=== PATIENT | female | born 1960 | race African-American/Black ===

== ENCOUNTER 2017-03-20 21:33 | Emergency (ER) | payer SELFPAY ==
[2017-03-21] MEDS ORDERED: TETRACAINE HCL 0.5% OPH SOLN 2 ML ONE (00:32)
[2017-03-21] MEDS ORDERED: CETIRIZINE 10 MG TABLET PO ONE (00:45)
[2017-03-21] MEDS ORDERED: TETRACAINE HCL 0.5% OPH SOLN 2 ML OS ONE (00:45)
--- NOTE | 2017-03-21 00:51 | ER Document Report ---
ED Eye Complaint - General Chief Complaint: Eye Pain Stated Complaint: LEFT EYE IRRITATION, REDNESS Notes: Patient is a 57-year-old female, contact user, presents with 3 days of left itchy nose and sneezing. She tried Ilene-D with some relief of her symptoms, but her left eye still itches. She recently started a new job and thinks that the dust is causing irritation of her eye. She denies blurry vision, discharge, eye pain or headache. - Related Data Allergies/Adverse Reactions: No Known Allergies Allergy (Unverified 12/14/11 11:03) Past Medical History - General Information source: Patient - Social History Smoking Status: Unknown if Ever Smoked Family History: Reviewed & Not Pertinent - Past Medical History Cardiac Medical History: Reports: Hx Hypertension Renal/ Medical History: Denies: Hx Peritoneal Dialysis Past Surgical History: Reports: Hx Section - x3, Hx Cholecystectomy, Hx Tubal Ligation - Immunizations Hx Diphtheria, Pertussis, Tetanus Vaccination: No Review of Systems - Review of Systems Notes: REVIEW OF SYSTEMS: CONSTITUTIONAL: -fevers, -chills EENT: +left eye redness and pruritis, -eye pain, -difficulty swallowing, -nasal congestion CARDIOVASCULAR:-chest pain, -syncope. RESPIRATORY: -cough, -SOB GASTROINTESTINAL: -abdominal pain, - nausea, -vomiting, -diarrhea GENITOURINARY: -dysuria, -hematuria MUSCULOSKELETAL: -back pain, -neck pain SKIN: -rash or skin lesions. HEMATOLOGIC: -easy bruising or bleeding. LYMPHATIC: -swollen, enlarged glands. NEUROLOGICAL: -altered mental status or loss of consciousness, -headache, - neurologic symptoms PSYCHIATRIC: -anxiety, -depression. ALL OTHER SYSTEMS REVIEWED AND NEGATIVE. Physical Exam - Vital signs Vitals: Temp Pulse Resp BP Pulse Ox 99.1 F 96 17 140/82 H 99 03/20/17 22:49 03/20/17 22:49 03/20/17 22:49 03/20/17 22:49 03/20/17 22:49 - Notes Notes: PHYSICAL EXAMINATION: GENERAL: Well-appearing, well-nourished and in no acute distress. HEAD: Atraumatic, normocephalic. EYES: Blue contact lenses in both eyes, after left contact lens removed no abrasion or ulcer 14 seen exam, EOMI, pupils equal round and reactive to light, sclera anicteric, left conjunctiva injected ENT: nares patent, oropharynx clear without exudates. Moist mucous membranes. NECK: Normal range of motion, supple without lymphadenopathy LUNGS: Breath sounds clear to auscultation bilaterally and equal. No wheezes rales or rhonchi. HEART: Regular rate and rhythm without murmurs ABDOMEN: Soft, nontender, normoactive bowel sounds. No guarding, no rebound. No masses appreciated. EXTREMITIES: Normal range of motion, no pitting or edema. No cyanosis. NEUROLOGICAL: Cranial nerves grossly intact. Normal speech, normal gait. Normal sensory, motor, and reflex exams. PSYCH: Normal mood, normal affect. SKIN: Warm, Dry, normal turgor, no rashes or lesions noted. Course - Vital Signs Vital signs: Temp Pulse Resp BP Pulse Ox 99.1 F 96 17 140/82 H 99 03/20/17 22:49 03/20/17 22:49 03/20/17 22:49 03/20/17 22:49 03/20/17 22:49 Discharge - Discharge Clinical Impression: Allergic conjunctivitis and rhinitis Qualifiers: Laterality: left Qualified Code(s): H10.12 - Acute atopic conjunctivitis, left eye; J30.9 - Allergic rhinitis, unspecified Condition: Good Disposition: HOME, SELF-CARE Additional Instructions: Use the Naphcon drops and take [id number] Zyrtec to help with your eye symptoms. Follow-up with the eye doctor if your symptoms do not improve. Referrals: GAYATHRI RODRIGUES MD [Primary Care Provider] - Follow up as needed DIANE VIEYRA DO [ACTIVE STAFF] - Follow up as needed
[2017-03-21 01:11] VITALS: BP 121/65
== END 2017-03-21 01:11 | disposition home or self-care (01) ==
LOC: ER 21:33
DX: H10.12 Acute atopic conjunctivitis, left eye (principal); J30.9 Allergic rhinitis, unspecified; I10 Essential (primary) hypertension
CPT/HCPCS: 99283

== ENCOUNTER 2018-09-23 18:16 | Emergency (ER) | payer SELFPAY ==
[2018-09-23 18:42] VITALS: BP 162/82
[2018-09-23] MEDS ORDERED: KETOROLAC TROMETHAMINE INJ/PF 30 MG/1 ML SDV IV ONE (19:20)
[2018-09-23] MEDS ORDERED: ONDANSETRON HCL INJ/PF 4 MG/2 ML SDV IV ONE (19:20)
[2018-09-23] MEDS ORDERED: NORMAL SALINE 1000 ML 1,000 ML IV ONE (19:20)
[2018-09-23 19:49] LABS: ABSOLUTE BASOPHILS # (AUTO) 0.1 10^3/uL (0.0-0.2); ABSOLUTE EOSINOPHILS # (AUTO) 0.3 10^3/uL (0.0-0.6); ABSOLUTE LYMPHOCYTES (AUTO) 2.5 10^3/uL (0.5-4.7); ABSOLUTE MONOCYTES (AUTO) 0.4 10^3/uL (0.1-1.4); ABSOLUTE NEUT (AUTO) 3.5 10^3/uL (1.7-8.2); BASOPHILS % (AUTO) 1.1 % (0-2); EOSINOPHILS % (AUTO) 4.5 % (0-6); HEMATOCRIT 43.6 % (36.0-47.0); HEMOGLOBIN 14.5 g/dL (12.0-15.5); LYMPHOCYTES % (AUTO) 36.4 % (13-45); MEAN CORPUSCULAR HEMOGLOBIN 30.4 pg (27.0-33.4); MEAN CORPUSCULAR HGB CONC 33.2 g/dL (32.0-36.0); MEAN CORPUSCULAR VOLUME 92 fl (80-97); MONOCYTES % (AUTO) 6.6 % (3-13); PLATELET COUNT 400 10^3/uL (150-450); RED BLOOD COUNT 4.76 10^6/uL (3.72-5.28); RED CELL DISTRIBUTION WIDTH 14.8 % (11.5-14.0); SEGMENTED NEUTROPHILS % (AUTO) 51.4 % (42-78); TOTAL CELLS COUNTED % (AUTO) 100 %; WHITE BLOOD COUNT 6.8 10^3/uL (4.0-10.5)
[2018-09-23 19:57] LABS: APPEARANCE,URINE SLIGHTLY-CLOUDY; BILIRUBIN,URINE NEGATIVE (NEGATIVE); COLOR,URINE YELLOW; GLUCOSE, URINE NEGATIVE (NEGATIVE); KETONES,URINE NEGATIVE (NEGATIVE); LEUKOCYTE ESTERASE,URINE SMALL (NEGATIVE); NITRITE,URINE NEGATIVE (NEGATIVE); PROTEIN,URINE NEGATIVE (NEGATIVE); URINE SPECIFIC GRAVITY 1.017; UROBILINOGEN,URINE NEGATIVE mg/dL (<2.0)
--- NOTE | 2018-09-23 20:00 | RADIOLOGY REPORT (SQ) ---
EXAM DESCRIPTION: CT LTD RENAL STONE PROTOCOL ON COMPLETED DATE/TIME: 09/23/2018 7:46 pm REASON FOR STUDY: flankpain COMPARISON: 12/14/2011 TECHNIQUE: CT scan of the abdomen and pelvis performed without intravenous or oral contrast. Images reviewed with lung, soft tissue, and bone windows. Reconstructed coronal and sagittal MPR images revi ewed. All images stored on PACS. All CT scanners at this facility use dose modulation, iterative reconstruction, and/or weight based d osing when appropriate to reduce radiation dose to as low as reasonably achievable (ALARA). [facility]: Dose Right [facility]: CareDose [facility]: Dose Right [facility]: Teradose 4D [facility]: IntellinX RADIATION DOSE: mGy. LIMITATIONS: None. FINDINGS: LOWER CHEST: No significant findings. No nodules or infiltrates. NON-CONTRASTED LIVER, SPLEEN, ADRENALS: Evaluation limited by lack of IV contrast. No identified sign ificant masses. PANCREAS: No masses. No peripancreatic inflammatory changes. GALLBLADDER: Surgically absent. RIGHT KIDNEY AND URETER: No suspicious masses. Assessment limited by lack of IV contrast. Small non obstructing intrarenal calculus image 25. No hydronephrosis or hydroureter. LEFT KIDNEY AND URETER: No suspicious masses. Assessment limited by lack of IV contrast. No signifi cant calcifications. No hydronephrosis or hydroureter. AORTA AND RETROPERITONEUM: No aneurysm. No retroperitoneal masses or adenopathy. BOWEL AND PERITONEAL CAVITY: No obvious masses or inflammatory changes. No free fluid. APPENDIX: Not identified. PELVIS, BLADDER, AND ABDOMINAL WALL:No abnormal masses. No free fluid. Bladder normal. BONES: No significant findings. OTHER: There is a 3 mm calcification seen posterior to the bladder on image 70. Is not certain wheth er this represents the same calcification seen on image 69 of the prior study. IMPRESSION: 1. 3 mm calcification posterior to the bladder on the right could conceivably be in the distal ureter. However, there is no hydronephrosis or hydroureter. And there is a similar calcific ation at a similar location on the prior study. 2. Small nonobstructing right intrarenal calculus. COMMENT: Quality ID # [id number]: Final reports with documentation of one or more dose reduction techniques (e.g., Automated exposure control, adjustment of the mA and/or kV according to patient size, use of iterative reconstruction technique) TECHNICAL DOCUMENTATION: JOB ID: [id number] [employer]- All Rights Reserved Reading location - IP/workstation name: [email or web address]
[2018-09-23 20:07] LABS: ALANINE AMINOTRANSFERASE 13 U/L (9-52); ALKALINE PHOSPHATASE 63 U/L (38-126); ANION GAP 5 (5-19); ASPARTATE AMINO TRANSFERASE 28 U/L (14-36); BILIRUBIN,DIRECT 0.3 mg/dL (0.0-0.4); BILIRUBIN,TOTAL 0.6 mg/dL (0.2-1.3); BLOOD UREA NITROGEN 16 mg/dL (7-20); CALCIUM 9.5 mg/dL (8.4-10.2); CARBON DIOXIDE 28 mmol/L (22-30); CHLORIDE 108 mmol/L (98-107); GLUCOSE 90 mg/dL (75-110); POTASSIUM 4.8 mmol/L (3.6-5.0); SODIUM 141.3 mmol/L (137-145); TOTAL PROTEIN 6.8 g/dL (6.3-8.2)
[2018-09-23] MEDS ORDERED: ONDANSETRON 4 MG TAB.RAPDIS PO ONE (20:23)
[2018-09-23] MEDS ORDERED: OXYCODONE-ACETAMINOPHEN 5-325 MG TABLET PO ONE (20:23)
--- NOTE | 2018-09-23 20:29 | ER Document Report ---
ED General - General Chief Complaint: Flank Pain Stated Complaint: SIDE PAIN Time Seen by Provider: 09/23/18 19:14 TRAVEL OUTSIDE OF THE [place] IN LAST 30 DAYS: No - HPI Patient complains to provider of: Right flank pain Notes: Ipatient coming in for evaluation of right flank pain states started all of a sudden earlier today is eased off at this time. Patient denies any hematuria but states that he has a history of kidney stones. Denies any fever chills nausea vomiting diarrhea. Patient resting comfortably upon my evaluation. - Related Data Allergies/Adverse Reactions: No Known Allergies Allergy (Verified 09/23/18 18:35) Past Medical History - Social History Smoking Status: Current Some Day Smoker Chew tobacco use (# tins/day): No Frequency of alcohol use: None Drug Abuse: None Family History: Reviewed & Not Pertinent Patient has suicidal ideation: No Patient has homicidal ideation: No - Past Medical History Cardiac Medical History: Reports: Hx Hypertension Renal/ Medical History: Reports: Hx Kidney Stones. Denies: Hx Peritoneal Dialysis Past Surgical History: Reports: Hx Section - x3, Hx Cholecystectomy, Hx Genitourinary Surgery - cyst removed from bladder, Hx Tubal Ligation - Immunizations Hx Diphtheria, Pertussis, Tetanus Vaccination: No Review of Systems - Review of Systems Constitutional: No symptoms reported EENT: No symptoms reported Cardiovascular: No symptoms reported Respiratory: No symptoms reported Gastrointestinal: No symptoms reported Genitourinary: Flank pain Female Genitourinary: No symptoms reported Musculoskeletal: No symptoms reported Skin: No symptoms reported Hematologic/Lymphatic: No symptoms reported Neurological/Psychological: No symptoms reported -: Yes All other systems reviewed and negative Physical Exam - Vital signs Vitals: Temp Pulse Resp BP Pulse Ox 98.7 F 64 20 162/82 H 100 09/23/18 18:40 09/23/18 18:40 09/23/18 18:40 09/23/18 18:40 09/23/18 18:40 Interpretation: Normal - General General appearance: Appears well, Alert - HEENT Head: Normocephalic, Atraumatic Eyes: Normal Pupils: PERRL - Respiratory Respiratory status: No respiratory distress Chest status: Nontender Breath sounds: Normal Chest palpation: Normal - Cardiovascular Rhythm: Regular Heart sounds: Normal auscultation Murmur: No - Abdominal Inspection: Normal Distension: No distension Bowel sounds: Normal Tenderness: Nontender Organomegaly: No organomegaly - Back Back: Normal, Nontender - Extremities General upper extremity: Normal inspection, Nontender, Normal color, Normal ROM , Normal temperature General lower extremity: Normal inspection, Nontender, Normal color, Normal ROM , Normal temperature, Normal weight bearing. No: Dudley's sign - Neurological Neuro grossly intact: Yes Cognition: Normal Orientation: AAOx4 Bynum Coma Scale Eye Opening: Spontaneous Bynum Coma Scale Verbal: Oriented Bynum Coma Scale Motor: Obeys Commands Bynum Coma Scale Total: 15 Speech: Normal Motor strength normal: LUE, RUE, LLE, RLE Sensory: Normal - Psychological Associated symptoms: Normal affect, Normal mood - Skin Skin Temperature: Warm Skin Moisture: Dry Skin Color: Normal Course - Re-evaluation Re-evalutation: 09/23/18 21:10 CT scan does show signs of a kidney stone which is consistent with the patient' s hematuria. Kidney stone treatment was performed Flomax pain medication Tylenol Motrin oxycodone and Zofran for nausea. Patient was educated about kidney stones no signs of urosepsis infection or renal failure patient discharged home - Vital Signs Vital signs: Temp Pulse Resp BP Pulse Ox 98.7 F 64 20 162/82 H 100 09/23/18 18:40 09/23/18 18:40 09/23/18 18:40 09/23/18 18:40 09/23/18 18:40 - Laboratory Result Diagrams: 09/23/18 19:30 09/23/18 19:30 Laboratory results interpreted by me: 09/23/18 09/23/18 09/23/18 19:30 19:30 19:30 RDW 14.8 H Chloride 108 H Urine Blood LARGE H Ur Leukocyte Esterase SMALL H Discharge - Discharge Clinical Impression: Kidney stone Condition: Good Disposition: HOME, SELF-CARE Instructions: Kidney Stone ([facility]), Oral Narcotic Medication ([facility]) Additional Instructions: Your CT scan today laboratory evaluation shows blood within the urine consistent with a kidney stone that we see on the CAT scan. I will highly recommend she drink plenty of fluids to help passage of the kidney stone. Zofran for nausea Tylenol and Motrin for pain control hydrocodone for severe pain. Return to ER symptoms worsen. Flomax is used to possibly aid in passage of the kidney stone however this is not needed to passed a kidney stone. Prescriptions: Ibuprofen [Motrin 600 mg Tablet] 600 mg PO Q8HP PRN #21 tablet PRN Reason: Ondansetron [Zofran Odt] 4 mg PO Q6 PRN #30 tab.rapdis PRN Reason: For Nausea/Vomiting Oxycodone HCl 5 mg PO Q6 #20 tablet Tamsulosin HCl [Flomax 0.4 mg Cap.sr] 0.4 mg PO DAILY #7 cap.sr.24h Forms: Return to Work Referrals: GAYATHRI RODRIGUES MD [COMMUNITY BASED STAFF] - Follow up as needed
== END 2018-09-23 20:32 | disposition home or self-care (01) ==
LOC: ER 18:16
DX: N20.0 Calculus of kidney (principal); R10.9 Unspecified abdominal pain; F17.200 Nicotine dependence, unspecified, uncomplicated; I10 Essential (primary) hypertension
CPT/HCPCS: 99284; 96361; 96374; 96375; 36415; 85025; 80053; 81001; 76380; S0119; J1885; J2405; J7030

== ENCOUNTER 2018-11-01 11:03 | Emergency (ER) | payer OTHER ==
[2018-11-01] MEDS ORDERED: FLUCONAZOLE 100 MG TABLET PO ONE (11:29)
--- NOTE | 2018-11-01 11:29 | ER Document Report ---
ED General - General Chief Complaint: Rash Stated Complaint: SKIN IRRITATION Time Seen by Provider: 11/01/18 11:21 Notes: Patient is a 58-year-old female that presents to the emergency department for chief complaint of rash. Patient states that she is noticed the rash on her breast, she thinks is a yeast rash, she states she gets this almost every summer , but it seemed to have gotten worse over the last 2 days which she noticed it is more painful, she did try applying a antifungal cream, that was borrowed from a friend, and she thinks it may have made it worse so she wanted to come to the emergency department to have this evaluated. She denies any other rashes , other than underneath her breast, seems to be worse on the right breast, than the left. She has a secondary complaint, she was recently seen about 3 weeks ago, for kidney stone, she states that it was in the lower portion about to go to the bladder, but she still occasionally gets a sharp sensation here and there , is not sure if she passed it. She denies any any blood in the urine or dysuria. She states she has some mild nausea, but no vomiting. Currently rates her pain as a 1 out of 10 describes it as a sharp burning sensation under the breast with a rashes. Past Medical History: Kidney stones, hypertension Past Surgical History: , cholecystectomy, tubal ligation Social History: Admits to rare alcohol use and rare tobacco use, denies illicit drug use. Family History: Reviewed and noncontributory for presenting illness Allergies: Reviewed, see documented allergy list. REVIEW OF SYSTEMS: Other than noted above, the 12 point review of systems was reviewed with the patient and were negative, all pertinent findings are included in the HPI. PHYSICAL EXAMINATION: Vital signs reviewed, nursing noted reviewed. GENERAL: Well-appearing, well-nourished and in no acute distress. HEAD: Atraumatic, normocephalic. EYES: Eyes appear normal, extraocular movements intact, sclera anicteric, conjunctiva are normal. ENT: nares patent, oropharynx clear without exudates. Moist mucous membranes. NECK: Normal range of motion, supple without lymphadenopathy LUNGS: Breath sounds clear to auscultation bilaterally and equal. No wheezes rales or rhonchi. HEART: Regular rate and rhythm without murmurs ABDOMEN: Soft, no CVA tenderness, no anterior abdominal tenderness with palpation, normoactive bowel sounds. No rebound, guarding, or rigidity. No masses appreciated. EXTREMITIES: Nontender, good range of motion, no pitting or edema. NEUROLOGICAL: No focal neurological deficits. Moves all extremities spontaneously Motor and sensory grossly intact on exam. PSYCH: Normal mood, normal affect. SKIN: Warm, Dry, normal turgor, patient noted to have a candidal appearing rash underneath the right and left breast, measuring approximately 6 x 8 cm on the right, and 3 x 5 cm on the left. No active drainage or discharge at this time. TRAVEL OUTSIDE OF THE [place] IN LAST 30 DAYS: No - Related Data Allergies/Adverse Reactions: No Known Allergies Allergy (Verified 09/23/18 18:35) Past Medical History - Social History Smoking Status: Current Some Day Smoker Chew tobacco use (# tins/day): No Frequency of alcohol use: Occasional Drug Abuse: None Family History: Reviewed & Not Pertinent Patient has suicidal ideation: No Patient has homicidal ideation: No - Past Medical History Cardiac Medical History: Reports: Hx Hypertension Renal/ Medical History: Reports: Hx Kidney Stones. Denies: Hx Peritoneal Dialysis Past Surgical History: Reports: Hx Section - x3, Hx Cholecystectomy, Hx Genitourinary Surgery - cyst removed from bladder, Hx Tubal Ligation - Immunizations Hx Diphtheria, Pertussis, Tetanus Vaccination: No Physical Exam - Vital signs Vitals: Temp Pulse Resp BP Pulse Ox 98.9 F 93 16 135/81 H 99 11/01/18 11:16 11/01/18 11:16 11/01/18 11:16 11/01/18 11:16 11/01/18 11:16 Course - Re-evaluation Re-evalutation: Patient seen and examined vital signs reviewed. Laboratory data and imaging were ordered as appropriate for the patient's presenting symptoms and complaint, with consideration of any critical or life threatening conditions that may be associated with their obtained history and exam as noted above. Patient was treated with oral Diflucan 200 mg, she was offered medication for pain/discomfort, but declined at this time. Results were reviewed when available and demonstrated KUB negative for identified calcifications, the UA was positive for signs of urinary tract infection, will treat the patient with Keflex 500 mg 3 times daily for 7 days, and prescribe Diflucan for an additional 2 days 200 mg daily, as well as miconazole powder to help with the patient's candidal skin infection. The patient was re-evaluated and was stable, appeared well Evaluation was most consistent with UTI, as well as candidal skin infection. Results were discussed with the patient at this point, after careful consideration I feel that that patient can be discharged from the emergency department, the patient was educated treatments and reasons to return to the emergency department based on their presumed diagnosis as noted above, they were advised to followup with a primary care physician in 2-3 days. Patient was agreeable to plan of care. *Note is created using voice recognition software and may contain spelling, syntax or grammatical errors. Laboratory 11/01/18 11:33 Urine Color YELLOW Urine Appearance CLOUDY Urine pH 5.0 Ur Specific [place] 1.027 Urine Protein 30 H Urine Glucose (UA) NEGATIVE Urine Ketones NEGATIVE Urine Blood SMALL H Urine Nitrite NEGATIVE Urine Bilirubin NEGATIVE Urine Urobilinogen 2.0 H Ur Leukocyte Esterase LARGE H Urine WBC (Auto) >182 Urine RBC (Auto) 26 Squamous Epi Cells Auto 2 U Non-Squamous Epis Auto 5 Urine Mucus (Auto) MOD Urine Ascorbic Acid NEGATIVE KUB X-Ray 11/01/18 11:29 IMPRESSION: NO RADIOGRAPHIC EVIDENCE FOR ACUTE ABDOMINAL DISEASE. No calcifications. - Vital Signs Vital signs: Temp Pulse Resp BP Pulse Ox 98.9 F 78 18 132/88 H 100 11/01/18 12:58 11/01/18 12:58 11/01/18 12:58 11/01/18 12:58 11/01/18 12:58 - Laboratory Laboratory results interpreted by me: 11/01/18 11:33 Urine Protein 30 H Urine Blood SMALL H Urine Urobilinogen 2.0 H Ur Leukocyte Esterase LARGE H Discharge - Discharge Clinical Impression: Candidal skin infection UTI (urinary tract infection) Qualifiers: Urinary tract infection type: site unspecified Hematuria presence: with hematuria Qualified Code(s): N39.0 - Urinary tract infection, site not specified ; R31.9 - Hematuria, unspecified; R31.9 - Hematuria, unspecified Condition: Stable Disposition: HOME, SELF-CARE Instructions: Cephalexin ([facility]), Skin Fungus ([facility]), Urinary Tract Infection ([facility] ) Additional Instructions: Please take the antifungal medication as prescribed, for 2 more days, start taking it tomorrow, and apply the antifungal powder, as directed, please follow- up with your primary care physician, in the next 2-3 days. Please also take the complete course of antibiotics for your urinary tract infection Prescriptions: Cephalexin Monohydrate [Keflex 500 mg Capsule] 500 mg PO Q8H 7 Days #21 capsule Fluconazole [Diflucan] 200 mg PO DAILY #4 tablet Miconazole Nitrate [Micro-Guard] 1 applic TP BID #85 gm Referrals: MANUELA CARRENO MD [Primary Care Provider] - Follow up in 3-5 days
--- NOTE | 2018-11-01 12:00 | RADIOLOGY REPORT (SQ) ---
EXAM DESCRIPTION: KUB/ABDOMEN (SINGLE VIEW) COMPLETED DATE/TIME: 11/01/2018 11:49 am REASON FOR STUDY: right flank pain, recent stone COMPARISON: None. NUMBER OF VIEWS: One view. TECHNIQUE: Supine radiographic image of the abdomen acquired. LIMITATIONS: None. FINDINGS: BOWEL GAS PATTERN: Normal bowel gas pattern. No dilated loops. CALCIFICATIONS: No suspicious calcifications. SOFT TISSUES: No gross mass or suggestion of organomegaly. HARDWARE: Right upper quadrant clips. Pelvic clip. BONES: No acute fracture. No worrisome bone lesions. OTHER: No other significant finding. IMPRESSION: NO RADIOGRAPHIC EVIDENCE FOR ACUTE ABDOMINAL DISEASE. No calcifications. TECHNICAL DOCUMENTATION: JOB ID: [id number] [employer]- All Rights Reserved Reading location - IP/workstation name: [email or web address]
[2018-11-01 12:29] LABS: APPEARANCE,URINE CLOUDY; BILIRUBIN,URINE NEGATIVE (NEGATIVE); COLOR,URINE YELLOW; GLUCOSE, URINE NEGATIVE (NEGATIVE); KETONES,URINE NEGATIVE (NEGATIVE); LEUKOCYTE ESTERASE,URINE LARGE (NEGATIVE); NITRITE,URINE NEGATIVE (NEGATIVE); PROTEIN,URINE 30 mg/dL (NEGATIVE); URINE SPECIFIC GRAVITY 1.027
[2018-11-01 12:59] VITALS: BP 132/88
== END 2018-11-01 12:59 | disposition home or self-care (01) ==
LOC: ER 11:03
DX: B37.2 Candidiasis of skin and nail (principal); N39.0 Urinary tract infection, site not specified; I10 Essential (primary) hypertension; F17.200 Nicotine dependence, unspecified, uncomplicated; Z87.442 Personal history of urinary calculi; Z90.49 Acquired absence of other specified parts of digestive tract; Z98.51 Tubal ligation status
CPT/HCPCS: 74018; 81001; 87086; 87088; 87186; 99283

== ENCOUNTER 2018-12-03 18:57 | Emergency (ER) | payer OTHER ==
[2018-12-03] MEDS ORDERED: LIDOCAINE 5% (700 MG) TRANSDERMAL ADH..PATCH TP ONE (20:29)
[2018-12-03] MEDS ORDERED: NYSTATIN/TRIAMCIN OINTMENT 15 GM TP ONE (20:29)
[2018-12-03] MEDS ORDERED: ACETAMINOPHEN 325 MG TABLET PO ONE (20:29)
--- NOTE | 2018-12-03 20:34 | ER Document Report ---
ED General - General Chief Complaint: Back Pain Stated Complaint: BACK PAIN Time Seen by Provider: 12/03/18 20:08 Mode of Arrival: Ambulatory Information source: Patient Notes: 58-year-old female presents to ED for complaint of low back pain and yeast under both breasts. She states yeast is been there off and on since last time she came. She states she has this frequently in the summer but not really in the winter. She states she has had this low back pain a couple times before but this pain started yesterday while she was just laying on her couch. She does have a bruise to the area that she is complaining of but she states she did not fall or injure herself. Patient is alert oriented respirations regular and unlabored speaking in full sentences. TRAVEL OUTSIDE OF THE [place] IN LAST 30 DAYS: No - HPI Onset: Yesterday Onset/Duration: Persistent Quality of pain: Sharp Severity: Severe Pain Level: 5 Associated symptoms: Other - Low back pain and pain to the rash under both breasts Exacerbated by: Movement Relieved by: Denies Similar symptoms previously: Yes Recently seen / treated by doctor: No - Related Data Allergies/Adverse Reactions: No Known Allergies Allergy (Verified 12/03/18 18:58) Past Medical History - General Information source: Patient - Social History Smoking Status: Former Smoker Cigarette use (# per day): No Chew tobacco use (# tins/day): No Smoking Education Provided: No Frequency of alcohol use: Rare Drug Abuse: None Occupation: None Lives with: Alone Family History: Reviewed & Not Pertinent Patient has suicidal ideation: No Patient has homicidal ideation: No - Past Medical History Cardiac Medical History: Reports: Hx Hypertension Pulmonary Medical History: Reports: None EENT Medical History: Reports: None Neurological Medical History: Reports: None Endocrine Medical History: Reports: None Renal/ Medical History: Reports: Hx Kidney Stones Malignancy Medical History: Reports: None GI Medical History: Reports: None Musculoskeletal Medical History: Reports Hx Musculoskeletal Deformity - Back pain Skin Medical History: Reports Hx Cellulitis - And yeast rash Psychiatric Medical History: Reports: None Traumatic Medical History: Reports: None Infectious Medical History: Reports: None Past Surgical History: Reports: Hx Section - x3, Hx Cholecystectomy, Hx Genitourinary Surgery - cyst removed from bladder, Hx Gynecologic Surgery - Surgery to open her tubes before childbirth in 1984, Hx Tubal Ligation - Immunizations Hx Diphtheria, Pertussis, Tetanus Vaccination: No Review of Systems - Review of Systems Constitutional: No symptoms reported EENT: No symptoms reported Cardiovascular: No symptoms reported Respiratory: No symptoms reported Gastrointestinal: No symptoms reported Genitourinary: No symptoms reported Female Genitourinary: No symptoms reported Musculoskeletal: Back pain, Muscle pain Skin: No symptoms reported, Rash - Red excoriated rash under both breast Hematologic/Lymphatic: No symptoms reported Neurological/Psychological: No symptoms reported -: Yes All other systems reviewed and negative Physical Exam - Vital signs Vitals: Temp Pulse Resp BP Pulse Ox 99.1 F 103 H 16 153/102 H 98 12/03/18 19:12 12/03/18 19:12 12/03/18 19:12 12/03/18 19:12 12/03/18 19:12 Interpretation: Hypertensive - She has not had a blood pressure medicine yet today - General General appearance: Appears well, Alert - HEENT Head: Normocephalic, Atraumatic Eyes: Normal Pupils: PERRL - Respiratory Respiratory status: No respiratory distress Chest status: Nontender Breath sounds: Normal Chest palpation: Normal - Cardiovascular Rhythm: Regular Heart sounds: Normal auscultation Murmur: No - Abdominal Inspection: Normal Distension: No distension Bowel sounds: Normal Tenderness: Nontender Organomegaly: No organomegaly - Back Back: Tender, Vertebra tenderness, Other - Ecchymosis to the left lower back patient insists she did not have a fall or injury. No: Deformity/step-off, CVA tenderness, Scars, Scoliosis, Wounds - Extremities General upper extremity: Normal inspection, Nontender, Normal color, Normal ROM, Normal temperature General lower extremity: Normal inspection, Nontender, Normal color, Normal ROM, Normal temperature, Normal weight bearing. No: Dudley's sign - Neurological Neuro grossly intact: Yes Cognition: Normal Orientation: AAOx4 Keily Coma Scale Eye Opening: Spontaneous Keily Coma Scale Verbal: Oriented Keily Coma Scale Motor: Obeys Commands Keily Coma Scale Total: 15 Speech: Normal Motor strength normal: LUE, RUE, LLE, RLE Sensory: Normal - Psychological Associated symptoms: Normal affect, Normal mood - Skin Skin Temperature: Warm Skin Moisture: Dry Skin Color: Normal Skin irregularity: Rash - Yeast rash under both breast Character of irregularity: Erythematous Irregularity with: Inflammation Course - Re-evaluation Re-evalutation: 12/03/18 21:23 X-ray was negative for the low back. Patient was given instructions on Tylenol muscle relaxer ice packs cold packs exercise and Lidoderm patches. Patient was given a prescription for Mycolog for her yeast infection under her breast and for Flexeril for her back pain. Patient was given instructions to clean and dry the skin under her breast twice a day and apply the Mycolog cream. Patient was able to verbalize understanding and agreement with treatment plan. Patient instructed to follow-up with her primary doctor or a mail order clerk for her yeast infection. After performing a Medical Screening Examination, I estimate there is LOW risk for EXPANDING OR RUPTURED ABDOMINAL AORTIC ANEURYSM, CAUDA EQUINA SYNDROME, EPIDURAL MASS LESION, or HERNIATED DISK CAUSING SEVERE SPINAL STENOSIS, thus I consider the discharge disposition reasonable. I have reevaluated this patient multiple times and no significant life threatening changes are noted. The patient and I have discussed the diagnosis and risks, and we agree with discharging home and close follow-up. We also discussed returning to the Emergency Department immediately if new or worsening symptoms occur with the understanding that symptoms and presentations can change. We have discussed the symptoms which are most concerning (e.g., saddle anesthesia, urinary or bowel incontinence or retention, changing or worsening pain) that necessitate immediate return. - Vital Signs Vital signs: Temp Pulse Resp BP Pulse Ox 99.1 F 103 H 16 153/102 H 98 12/03/18 19:12 12/03/18 19:12 12/03/18 19:12 12/03/18 19:12 12/03/18 19:12 - Diagnostic Test Radiology reviewed: Image reviewed, Reports reviewed Discharge - Discharge Clinical Impression: Yeast dermatitis Low back pain Qualifiers: Chronicity: acute Back pain laterality: right Sciatica presence: with sciatica Sciatica laterality: sciatica of right side Qualified Code(s): M54.41 - Lumbago with sciatica, right side Condition: Stable Disposition: HOME, SELF-CARE Additional Instructions: You have a yeast infection on the both breast. Please clean the area 2 times a day, dry well, be sure that the area is completely dry and then apply your Mycolog cream. I have given you a tube of the Mycolog as well as a prescription so that you can apply it for 7 days. Follow-up with your primary doctor in the next week if this does not clear up your yeast infection or follow-up with a mail order clerk. Please take your blood pressure medicine is soon as you go home as your blood pressure has been elevated in the emergency room. LOW BACK PAIN: Three out of every four people will have an episode of disabling back pain during their lifetime. Most commonly the pain is due to straining of the muscles and ligaments in the low back. Usual treatment includes: (1) Rest on a firm surface. Avoid lying on your stomach. (2) Ice pack the painful area. After a few days, gentle heat may be used intermittently to relax the area, or ice packs can be continued. (3) Medication may be needed -- muscle relaxers and antiinflammatory medicines are commonly used. (4) As the back improves, exercises are prescribed to strengthen the back and abdominal muscles. Your doctor will advise you on the proper care for your back at each stage in your recovery. You may be better in a few days -- or healing may take several weeks. If new symptoms of a "herniated disc" (radiation of pain, numbness, or tingling down the back of the leg or weakness in the leg) occur, you should be re-examined. Further testing may be necessary. MUSCLE RELAXERS: Muscle relaxing medications are usually prescribed for acute muscle spasm or injury to the neck and back. They are often combined with antiinflammatory pain medication for increased relief. You may stop the muscle relaxer when the pain and stiffness have improved. Start the medication again if spasms recur. Muscle relaxers may cause drowsiness, especially with the first dose. Do not operate machinery or drive while under the effects of the medication. Most muscle relaxers last up to 24 hours. Do not combine the medication with alcohol. ICE PACKS: Apply ice packs frequently against the painful area. Many different schedules are recommended, such as "20 minutes on, 20 minutes off" or "one hour ice, two hours rest." If you need to work, you may need to go longer between ice treatments. You should plan to have the area ice packed AT LEAST one fourth of the time. The ice should be applied over the wrap, tape, or splint, or over a layer of cloth -- not directly against the skin. Some ice bags have a built-in cloth and can be put directly on the skin. WARM PACKS: After approximately two days, apply gentle heat (such as a heating pad or hot water bottle) for about 20 to 30 minutes about every two hours -- at least four times daily. Warmth and elevation will help you make a more rapid recovery, and will ease the pain considerably. Do not use HOT heat, and never apply heat for longer than 30 minutes. The continuous heat can invisibly damage skin and muscles -- even when no burn is seen on the surface. Damaged muscles can make you MORE sore. Acetaminophen Acetaminophen may be taken for pain relief or fever control. It's much safer than aspirin, offering a wider range of "safe" dosages. It is safe during . Some brand names are Tylenol, Panadol, Datril, Anacin 3, Tempra, and Liquiprin. Acetaminophen can be repeated every four hours. The following are maximum recommended dosages: WEIGHT Dose Drops Elixir Chewable(80mg) (LBS.) drprs=droppers tsp=teaspoon 6 40 mg .4 ml (1/2) 6-11 80 mg .8 ml (full) 1/2 tsp 1 tab 12-16 120 mg 1 1/2 drprs 3/4 tsp 1 1/2 tabs 17-23 160 mg 2 drprs 1 tsp 2 tabs 24-30 240 mg 3 drprs 1 1/2 tsp 3 tabs 30-35 320 mg 2 tsp 4 tabs 36-41 360 mg 2 1/4 tsp 4 1/2 tabs 42-47 400 mg 2 1/2 tsp 5 tabs 48-53 480 mg 3 tsp 6 tabs 54-59 520 mg 3 1/4 tsp 6 1/2 tabs 60-64 560 mg 3 1/2 tsp 7 tabs 65-70 600 mg 3 3/4 tsp 7 1/2 tabs 71-76 640 mg 4 tsp 8 tabs 77-82 720 mg 4 1/2 tsp 9 tabs 83-88 800 mg 5 tsp 10 tabs >89 pounds or adults 650 mg to 900 mg Acetaminophen can be repeated every four hours. Maximum daily dose not to exceed 4000 mg. These maximum recommended dosages are slightly higher than the dosages written on the product container, but these dosages are very safe and well below the toxic dosage for acetaminophen. Stretching Exercises for the Back The physician has recommended that you begin stretching exercises for your back. These are often used even while the back is painful. However, you should notify the physician if the activities seem to increase your pain. PELVIC TILT: Lie flat on your back with knees bent. Tighten your stomach and buttock muscles so it flattens your lower back against the floor. Hold 10 seconds. Repeat 10 times, twice daily. KNEE RAISE: Lying on the back with knees bent, raise one knee to your chest, then the other. Hold both knees against the chest 10 seconds, then lower one knee at a time. Repeat 10 times, twice daily. PARTIAL TRUNK RAISE: Lie face down, arms at your sides. Keeping your waist on the floor, use your arms raise your chest up. Support yourself on your elbows for 30 seconds. Repeat twice daily, increasing the time to two minutes as you recover. A Lidoderm patch has been applied to your back. This can stay on for 12 hours then needs to be removed and left off for 12 hours before applying a second patch. I have written you a prescription for these Lidoderm patches if you cannot afford the patches and you can buy them [id number] or you can buy Aspercreme lidocaine cream and apply it to the area. FOLLOW-UP CARE: If you have been referred to a physician for follow-up care, call the physicians office for an appointment as you were instructed or within the next two days. If you experience worsening or a significant change in your symptoms, notify the physician immediately or return to the Emergency Department at any time for re-evaluation. Prescriptions: Cyclobenzaprine HCl [Flexeril 10 mg Tablet] 10 mg PO TIDP PRN #15 tab PRN Reason: Nystatin/Triamcin [Mycolog-II Ointment] 1 applic TP BID #1 tube Forms: Elevated Blood Pressure
--- NOTE | 2018-12-03 21:06 | RADIOLOGY REPORT (SQ) ---
5 VIEWS OF THE LUMBAR SPINE HISTORY: Lower back pain. COMPARISON: None. FINDINGS: 5 non-rib bearing lumbar-type vertebra are present. There is normal alignment without static listhesis. The vertebral body heights and disc spaces are preserved. No evidence of spondylolysis on the oblique views. The SI joints are intact. IMPRESSION: No acute fracture or listhesis.
[2018-12-03 21:16] VITALS: BP 153/77
== END 2018-12-03 21:31 | disposition home or self-care (01) ==
LOC: ER 18:57
DX: B37.2 Candidiasis of skin and nail (principal); M54.41 Lumbago with sciatica, right side; I10 Essential (primary) hypertension; Z90.49 Acquired absence of other specified parts of digestive tract; Z98.51 Tubal ligation status
CPT/HCPCS: 99284; 72110; J3490

== ENCOUNTER 2019-03-20 17:19 | Emergency (ER) | payer OTHER ==
--- NOTE | 2019-03-20 17:43 | ER Document Report ---
ED Medical Screen (RME) - General Chief Complaint: Flank Pain Stated Complaint: RIGHT FLANK PAIN Time Seen by Provider: 03/20/19 17:41 Mode of Arrival: Ambulatory Information source: Patient Notes: 59-year-old female presented to ED for complaint of possible kidney stone with right flank pain. States a history of a kidney stone. States she came in here before got real bad and started having nausea and vomiting patient is alert oriented respirations regular and unlabored speaking in full sentences. She also has a history of high blood pressure and cholesterol. She is not having nausea or vomiting at this time. I have greeted and performed a rapid initial assessment of this patient. A comprehensive ED assessment and evaluation of the patient, analysis of test results and completion of medical decision making process will be conducted by an additional ED providers. TRAVEL OUTSIDE OF THE [place] IN LAST 30 DAYS: No - Related Data Allergies/Adverse Reactions: No Known Allergies Allergy (Verified 03/20/19 17:21) Past Medical History - Social History Frequency of alcohol use: Rare - Past Medical History Cardiac Medical History: Reports: Hx Hypertension Renal/ Medical History: Reports: Hx Kidney Stones. Denies: Hx Peritoneal Dialysis Musculoskeltal Medical History: Reports Hx Musculoskeletal Deformity - Back pain Skin Medical History: Reports Hx Cellulitis - And yeast rash Past Surgical History: Reports: Hx Section - x3, Hx Cholecystectomy, Hx Genitourinary Surgery - cyst removed from bladder, Hx Gynecologic Surgery - Surgery to open her tubes before childbirth in 1984, Hx Tubal Ligation - Immunizations Hx Diphtheria, Pertussis, Tetanus Vaccination: No Physical Exam - Vital signs Vitals: Temp Pulse Resp BP Pulse Ox 97.9 F 63 16 151/76 H 100 03/20/19 17:24 03/20/19 17:24 03/20/19 17:24 03/20/19 17:24 03/20/19 17:24 Course - Vital Signs Vital signs: Temp Pulse Resp BP Pulse Ox 97.9 F 63 16 151/76 H 100 03/20/19 17:24 03/20/19 17:24 03/20/19 17:24 03/20/19 17:24 03/20/19 17:24
[2019-03-20 18:04] LABS: APPEARANCE,URINE SLIGHTLY-CLOUDY; BILIRUBIN,URINE NEGATIVE (NEGATIVE); COLOR,URINE YELLOW; GLUCOSE, URINE NEGATIVE (NEGATIVE); KETONES,URINE NEGATIVE (NEGATIVE); LEUKOCYTE ESTERASE,URINE TRACE (NEGATIVE); NITRITE,URINE NEGATIVE (NEGATIVE); PROTEIN,URINE NEGATIVE (NEGATIVE); URINE SPECIFIC GRAVITY 1.025; UROBILINOGEN,URINE NEGATIVE mg/dL (<2.0)
[2019-03-20] MEDS ORDERED: KETOROLAC TROMETHAMINE 60 MG/2 ML SDV IM ONE (18:28)
--- NOTE | 2019-03-20 18:28 | RADIOLOGY REPORT (SQ) ---
EXAM DESCRIPTION: CT ABD/PELVIS NO ORAL OR IV COMPLETED DATE/TIME: 03/20/2019 6:09 pm REASON FOR STUDY: right flank pain hx stone COMPARISON: None. TECHNIQUE: CT scan of the abdomen and pelvis performed without intravenous or oral contrast. Images reviewed with lung, soft tissue, and bone windows. Reconstructed coronal and sagittal MPR images revi ewed. All images stored on PACS. All CT scanners at this facility use dose modulation, iterative reconstruction, and/or weight based d osing when appropriate to reduce radiation dose to as low as reasonably achievable (ALARA). [facility]: Dose Right [facility]: CareDose [facility]: Dose Right [facility]: Teradose 4D [facility]: Smart [employer] RADIATION DOSE: CT Rad equipment meets quality standard of care and radiation dose reduction techniq ues were employed. CTDIvol: 4.8 mGy. DLP: 237 mGy-cm.mGy. LIMITATIONS: None. FINDINGS: LOWER CHEST: No significant findings. No nodules or infiltrates. NON-CONTRASTED LIVER, SPLEEN, ADRENALS: Evaluation limited by lack of IV contrast. No identified sign ificant masses. PANCREAS: No masses. No peripancreatic inflammatory changes. GALLBLADDER: Surgically absent. RIGHT KIDNEY AND URETER: No suspicious masses. Assessment limited by lack of IV contrast. 5 mm calc ulus nonobstructive. No hydronephrosis or hydroureter. LEFT KIDNEY AND URETER: No suspicious masses. Assessment limited by lack of IV contrast. No signifi cant calcifications. No hydronephrosis or hydroureter. AORTA AND RETROPERITONEUM: No aneurysm. No retroperitoneal masses or adenopathy. BOWEL AND PERITONEAL CAVITY: No obvious masses or inflammatory changes. No free fluid. APPENDIX: Not visualized. PELVIS, BLADDER, AND ABDOMINAL WALL:No abnormal masses. No free fluid. Bladder normal. Surgical clip s anterior to the uterus. BONES: No significant findings. OTHER: No other significant finding. IMPRESSION: Right peripheral nephrolithiasis. No ureteral calculi. COMMENT: Quality ID # [id number]: Final reports with documentation of one or more dose reduction techniques (e.g., Automated exposure control, adjustment of the mA and/or kV according to patient size, use of iterative reconstruction technique) TECHNICAL DOCUMENTATION: JOB ID: [id number] [employer]- All Rights Reserved Reading location - IP/workstation name: [email or web address]
--- NOTE | 2019-03-20 19:15 | ER Document Report ---
ED General - General Chief Complaint: Flank Pain Stated Complaint: RIGHT FLANK PAIN Time Seen by Provider: 03/20/19 17:41 Mode of Arrival: Ambulatory TRAVEL OUTSIDE OF THE [place] IN LAST 30 DAYS: No - HPI Notes: Patient is a 59-year-old female presents to the emergency department for evaluation of right flank pain. She states this feels exactly like her kidney stone in the past. It started about 2:00 this afternoon. She states the pain is constant, sharp. She has had some nausea but no vomiting. No known fevers or chills. She states she may be urinating more frequently, but she is unsure. No zane hematuria, no dysuria. Otherwise no acute complaints. - Related Data Allergies/Adverse Reactions: No Known Allergies Allergy (Verified 03/20/19 17:21) Past Medical History - General Information source: Patient - Social History Smoking Status: Current Some Day Smoker Frequency of alcohol use: Rare Family History: Reviewed & Not Pertinent Patient has suicidal ideation: No Patient has homicidal ideation: No - Past Medical History Cardiac Medical History: Reports: Hx Hypertension Renal/ Medical History: Reports: Hx Kidney Stones. Denies: Hx Peritoneal Dialysis Musculoskeletal Medical History: Reports Hx Musculoskeletal Deformity - Back pain Skin Medical History: Reports Hx Cellulitis - And yeast rash Past Surgical History: Reports: Hx Section - x3, Hx Cholecystectomy, Hx Genitourinary Surgery - cyst removed from bladder, Hx Gynecologic Surgery - Surgery to open her tubes before childbirth in 1984, Hx Tubal Ligation - Immunizations Hx Diphtheria, Pertussis, Tetanus Vaccination: No Review of Systems - Review of Systems Constitutional: No symptoms reported EENT: No symptoms reported Cardiovascular: No symptoms reported Respiratory: No symptoms reported Gastrointestinal: No symptoms reported Genitourinary: See HPI Musculoskeletal: No symptoms reported Skin: No symptoms reported Neurological/Psychological: No symptoms reported Physical Exam - Vital signs Vitals: Temp Pulse Resp BP Pulse Ox 97.9 F 63 16 151/76 H 100 03/20/19 17:24 03/20/19 17:24 03/20/19 17:24 03/20/19 17:24 03/20/19 17:24 - Notes Notes: Vital signs reviewed, please refer to chart. Patient is normocephalic, atraumatic. Pupils equal round, reactive to light. Neck is supple without meningismus. Heart is regular rate and rhythm. Lungs are clear to auscultation bilaterally. Abdomen is soft, nontender, normoactive bowel sounds throughout. No CVA tenderness. Extremities without cyanosis, clubbing, edema. Peripheral pulses are equal. Skin is warm and dry. Patient is awake, alert, neurological exam is nonfocal. Course - Re-evaluation Re-evalutation: 03/20/19 19:12 Patient presents emergency department for evaluation. She had a urinalysis and CT scan ordered through triage. I did give a verbal order for the patient received Toradol IM here. This is actually before the completion of my exam. The patient said her pain was entirely resolved. CT scan failed to reveal any ureteral stones. At this point, certainly she could have had a sub-millimeter stone that caused her similar symptoms. I will send her home with anti- inflammatories and nausea medication. She is to follow-up with primary care, return to the emergency department for worsening or new concerning symptoms. - Vital Signs Vital signs: Temp Pulse Resp BP Pulse Ox 97.9 F 63 16 151/76 H 100 03/20/19 17:24 03/20/19 17:24 03/20/19 17:24 03/20/19 17:24 03/20/19 17:24 - Laboratory Laboratory results interpreted by me: 03/20/19 17:43 Ur Leukocyte Esterase TRACE H Discharge - Discharge Clinical Impression: Acute right flank pain Condition: Stable Disposition: HOME, SELF-CARE Instructions: Toradol Injection ([facility]), Antinausea Medication ([facility]), Abdominal Pain ([facility]) Additional Instructions: Rest, stay well-hydrated. Take medications as needed. Follow-up with your primary care physician next week. Return to the emergency department with worsening or new concerning symptoms.
[2019-03-20 19:43] VITALS: BP 150/75
== END 2019-03-20 19:42 | disposition home or self-care (01) ==
LOC: ER 17:19
DX: R10.9 Unspecified abdominal pain (principal); R11.0 Nausea; F17.200 Nicotine dependence, unspecified, uncomplicated; I10 Essential (primary) hypertension; Z87.442 Personal history of urinary calculi
CPT/HCPCS: 99284; 81001; 74176; J1885

== ENCOUNTER 2019-04-08 03:23 | Emergency (ER) | payer OTHER ==
[2019-04-08] MEDS ORDERED: BENZONATATE 100 MG CAPSULE PO ONE (04:31)
--- NOTE | 2019-04-08 04:33 | ER Document Report ---
ED General - General Chief Complaint: Chest Congestion Stated Complaint: COLD SYMPTOMS Time Seen by Provider: 04/08/19 04:04 Notes: Patient is a 59-year-old female that comes to the emergency department with 2 complaints. First complaint is a productive cough for the past 3 days, there is a small amount of white sputum production, patient states it started out with some irritation of the back of her throat and then developed into a cough. She reports some chills/sweats occasionally, denies fevers. Denies difficulty breathing, sinus tenderness, congestion. Second complaint is she stepped on a nail approximately 2 days ago, this was in the mid bottom of her left foot, she states this started to become a little bit red and is starting to become painful. She denies swelling. She is up-to-date on her tetanus within 5 years. She is not a diabetic, she denies blood thinner. Only past medical history of hypertension, on atenolol. TRAVEL OUTSIDE OF THE [place] IN LAST 30 DAYS: No - Related Data Allergies/Adverse Reactions: No Known Allergies Allergy (Verified 03/20/19 17:21) Past Medical History - General Information source: Patient - Social History Smoking Status: Never Smoker Chew tobacco use (# tins/day): No Frequency of alcohol use: Occasional Drug Abuse: None Lives with: Family Family History: Reviewed & Not Pertinent Patient has suicidal ideation: No Patient has homicidal ideation: No - Past Medical History Cardiac Medical History: Reports: Hx Hypertension Renal/ Medical History: Reports: Hx Kidney Stones. Denies: Hx Peritoneal Dialysis Musculoskeletal Medical History: Reports Hx Musculoskeletal Deformity - Back pain Skin Medical History: Reports Hx Cellulitis - And yeast rash Past Surgical History: Reports: Hx Section - x3, Hx Cholecystectomy, Hx Genitourinary Surgery - cyst removed from bladder, Hx Gynecologic Surgery - Surgery to open her tubes before childbirth in 1984, Hx Tubal Ligation - Immunizations Hx Diphtheria, Pertussis, Tetanus Vaccination: No Review of Systems - Review of Systems Constitutional: No symptoms reported EENT: No symptoms reported Cardiovascular: No symptoms reported Respiratory: See HPI Gastrointestinal: No symptoms reported Genitourinary: No symptoms reported Female Genitourinary: No symptoms reported Musculoskeletal: See HPI Skin: No symptoms reported Hematologic/Lymphatic: No symptoms reported Neurological/Psychological: No symptoms reported Physical Exam - Vital signs Vitals: Temp Pulse Resp BP Pulse Ox 98.1 F 61 17 174/97 H 99 04/08/19 03:30 04/08/19 03:30 04/08/19 03:30 04/08/19 03:30 04/08/19 03:30 - Notes Notes: GENERAL: Alert, interacts well. No acute distress. HEAD: Normocephalic, atraumatic. EYES: Pupils equal, round, and reactive to light. Extraocular movements intact. ENT: Oral mucosa moist, tongue midline. Oropharynx unremarkable. Airway patent. Nares patent, no nasal septal hematoma, TM's intact. NECK: Full range of motion. Supple. Trachea midline. LUNGS: Frequent tight cough, however lungs are clear, no tachypnea, no rales, no rhonchi, no wheezing HEART: Regular rate and rhythm. No murmur ABDOMEN: Soft, non-tender. Non-distended. Bowel sounds present in all 4 quadrants. GENITOURINARY: Deferred EXTREMITIES: Mid underside of left foot with a small area of tenderness and erythema. This is mild. No fluctuance or induration. No swelling of the foot. Normal extremity exam is otherwise. BACK: no cervical, thoracic, lumbar midline tenderness. No saddle anesthesia, normal distal neurovascular exam. NEUROLOGICAL: Alert and oriented x3. Normal speech. . PSYCH: Normal affect, normal mood. SKIN: Warm, dry, normal turgor. No rashes or lesions noted. Course - Re-evaluation Re-evalutation: Chest x-ray is unremarkable. There appears to be interference from patient's dreadlocks which showed up on the x-ray, I did discuss this with the radiologist, it is felt there is no lesion based on this. The lesion area in question is exactly where patient's dreadlocks were located. I did confirm this with the x-ray tech. X-ray of the foot is unremarkable. Patient's symptoms are consistent with viral bronchitis which is mild without wheezing, hypoxia, tachypnea, or fever. I discussed this, discussed options, steroids were declined after discussion. She will take [id number] medication for this. However I am more concerned that she might be developing an early infection in the foot after the puncture, she will be covered for both Pseudomonas and staph/strep because the nail went through the sole of the shoe. Patient was educated on care. Discussed follow-up, she will follow-up with her hypertension as well, discussed return precautions, patient states understanding and agreement. - Vital Signs Vital signs: Temp Pulse Resp BP Pulse Ox 98.1 F 66 18 177/92 H 99 04/08/19 06:41 04/08/19 06:41 04/08/19 06:41 04/08/19 06:41 04/08/19 06:41 Discharge - Discharge Clinical Impression: Puncture wound of skin from metal nail, Cough Condition: Stable Disposition: HOME, SELF-CARE Additional Instructions: Your chest x-ray does not show pneumonia or concerning finding. Your evaluation is consistent with bronchitis, this should gradually resolve with time. Ove [id number] medication such as antiallergy medication and chest decongestant (Zyrtec, Ilene, guaifenesin) may help. Take Tessalon for cough, take the provided medication from here tonight for pain/cough if needed. In regards to her foot, this is concerning for possible developing infection although the x-ray does not show any concerning finding. Recommendation is to take the antibiotics as prescribed to completion. Elevate, especially for the first couple of days. Take ibuprofen for pain. Return if you worsen including difficulty breathing, fevers, swelling of the foot, spreading redness of the foot, or any other concerning or worsening symptoms. Prescriptions: Cephalexin Monohydrate [Keflex 500 mg Capsule] 500 mg PO QID #28 capsule Ciprofloxacin HCl [Cipro 500 mg Tablet] 500 mg PO BID #14 tablet Forms: Elevated Blood Pressure
--- NOTE | 2019-04-08 06:05 | RADIOLOGY REPORT (SQ) ---
EXAM DESCRIPTION: XR CHEST 2 VIEWS COMPLETED DATE/TME: 04/08/2019 04:30 CLINICAL HISTORY: 59 years Female, productive cough, sweats COMPARISON: None. NUMBER OF VIEWS/TECHNIQUE: 2, Frontal, Lateral FINDINGS: Indeterminate large opacities at the left shoulder partially imaged. Adequate lung volume, clear parenchyma, normal cardiac silhouette, and intact bony thorax. Upper abdominal clips. IMPRESSION: 1. Indeterminate large opacities at the left shoulder partially imaged. Recommend dedicated radiographs of the left shoulder. 2. No acute cardiopulmonary findings.
--- NOTE | 2019-04-08 06:07 | RADIOLOGY REPORT (SQ) ---
Left foot two view on 04/08/2019 at 5:46 AM CLINICAL INDICATION: Stepped on nail, pain COMPARISON: None FINDINGS: Ring was left on the second toe obscuring some detail of the second proximal phalanx. There is no radiopaque foreign body. There are no fractures. Visualized joints are well aligned. No bony abnormality is noted. IMPRESSION: No acute bony abnormality.
[2019-04-08] MEDS ORDERED: HYDROCODONE/ACETAMINOPHEN 5-325 MG (6 TAB/ER DISP) PO PRN (06:26)
[2019-04-08 06:43] VITALS: BP 177/92
== END 2019-04-08 06:43 | disposition home or self-care (01) ==
LOC: ER 03:23
DX: R05 Cough (principal); S91.339A Puncture wound without foreign body, unspecified foot, initial encounter; M79.672 Pain in left foot; W45.0XXA Nail entering through skin, initial encounter; R61 Generalized hyperhidrosis; R68.83 Chills (without fever); I10 Essential (primary) hypertension; Z79.899 Other long term (current) drug therapy
CPT/HCPCS: 71046; 99283

== ENCOUNTER 2019-08-10 11:55 | Emergency (ER) | payer OTHER ==
[2019-08-10 13:46] VITALS: BP 188/87
--- NOTE | 2019-08-10 14:14 | ER Document Report ---
HPI - HPI Patient complains to provider of: Bilateral foot pain Time Seen by Provider: 08/10/19 13:30 Onset: Other - 2 weeks Quality of pain: Achy Severity: Severe Pain Level: 4 Context: This 59-year-old female presents emergency department with complaints of bilateral dorsal foot pain. Patient reports pain for the past 2 weeks. Reports it started in her great toe and now radiates down her great toe. Denies trauma. Patient reports she has some type of fungal infection she is been using fungal cream but no relief of symptoms. Denies trauma to the toe. Patient also complains of left dorsal foot pain. Reports many weeks ago she had an infection in her foot was treated with antibiotics. She reports she had stepped on a nail and was not seen by anybody for 2 weeks. She reports when she finally did see somebody they told her she had an awful infection and they placed her on 3 antibiotics. Patient reported at that time her foot was not hurting no signs of infection so she was surprised she was infected. Patient reports the area does not really hurt it is just tender when she walks. She denies fever vomiting diarrhea. She denies trauma to both feet. She reports they are working around her house and she does walk around without shoes. She reports they do have nails but she does not think she is stepped on anymore nails. Associated Symptoms: None Exacerbated by: Walking Relieved by: Denies Similar symptoms previously: No Recently seen / treated by doctor: No - CONSTITUTIONAL Constitutional: DENIES: Fever, Chills - REPRODUCTIVE Reproductive: DENIES: : - MUSCULOSKELETAL Musculoskeletal: REPORTS: Extremity pain Past Medical History - General Information source: Patient Last Menstrual Period: irregular - Social History Smoking Status: Current Every Day Smoker Cigarette use (# per day): Yes Frequency of alcohol use: None Drug Abuse: None Occupation: call center Family History: Reviewed & Not Pertinent Patient has suicidal ideation: No Patient has homicidal ideation: No - Past Medical History Cardiac Medical History: Reports: Hx Hypertension Renal/ Medical History: Reports: Hx Kidney Stones. Denies: Hx Peritoneal Dialysis Musculoskeletal Medical History: Reports Hx Musculoskeletal Deformity - Back pain Skin Medical History: Reports Hx Cellulitis - And yeast rash Past Surgical History: Reports: Hx Section - x3, Hx Cholecystectomy, Hx Genitourinary Surgery - cyst removed from bladder, Hx Gynecologic Surgery - Surgery to open her tubes before childbirth in 1984, Hx Tubal Ligation - Immunizations Hx Diphtheria, Pertussis, Tetanus Vaccination: No Vertical Provider Document - CONSTITUTIONAL Agree With Documented VS: Yes Exam Limitations: No Limitations General Appearance: WD/WN, No Apparent Distress - INFECTION CONTROL TRAVEL OUTSIDE OF THE [place] IN LAST 30 DAYS: No - HEENT HEENT: Atraumatic, Normocephalic, PERRLA - NECK Neck: Supple - RESPIRATORY Respiratory: No Respiratory Distress - CARDIOVASCULAR Cardiovascular: Regular Rate - MUSCULOSKELETAL/EXTREMETIES Musculoskeletal/Extremeties: MARGARETTE FROM, Non-Tender - Patient complains of right toe hurting but not tender to palpate. No obvious deformity to right or left foot. No erythema no swelling no warmth to dorsal or plantar area. Patient does have onychomycosis to the right toenail. Toenails are long with dirt noted. good cap refill - NEURO Level of Consciousness: Awake, Alert, Appropriate Motor/Sensory: No Motor Deficit - DERM Integumentary: Warm, Dry Adult Front & Back Diagram: 1 - Right great toe nail with discoloration appears to be a fungal infection. We will treat with topical antifungal Course - Re-evaluation Re-evalutation: 08/10/19 15:44 This 59-year-old female presents to the emergency department with complaints of bilateral dorsal foot pain. Reports right toe pain that radiates to her foot. Also complains of left foot pain when she walks. Patient gives history of infection to the left little many many weeks ago. No signs and symptoms of infection such as erythema swelling warmth discharge. Right great toenail does have a fungal infection. - Vital Signs Vital signs: Temp Pulse Resp BP Pulse Ox 98.4 F 66 16 188/87 H 99 08/10/19 13:43 08/10/19 13:43 08/10/19 13:43 08/10/19 13:43 08/10/19 13:43 Discharge - Discharge Clinical Impression: Bilateral foot pain Condition: Stable Disposition: HOME, SELF-CARE Instructions: Fungal Nail Infection ([facility]) Additional Instructions: *You have been evaluated for bilateral foot pain, toenail fungal infection *Applied to medication once a day for the next 48 days. Follow-up with your primary care provider for full evaluation and exam Follow-up with support analyst within 1 week for recheck. *Take ibuprofen as indicated for pain *Return to ED for worsening condition, changes, needs Prescriptions: Efinaconazole [Jublia] 4 ml TP DAILY 48 Days #1 bottle Forms: Elevated Blood Pressure
== END 2019-08-10 14:30 | disposition home or self-care (01) ==
LOC: ER 11:55
DX: M79.672 Pain in left foot (principal); B35.1 Tinea unguium; M79.671 Pain in right foot; M79.674 Pain in right toe(s); F17.210 Nicotine dependence, cigarettes, uncomplicated; I10 Essential (primary) hypertension
CPT/HCPCS: 99282